=== PATIENT | female | born 1995 | race African-American/Black ===

== ENCOUNTER → 2017-03-19 | Day surgery (SDC) | payer OTHER ==
[~2017-03-19] VITALS: Ht 157.5 cm; Wt 77.6 kg
--- NOTE | 2017-03-24 13:49 | Operative Report ---
Operative/Inv Procedure Report Surgery Date: 03/19/17 Name of Procedure: Excisional biopsy of the vulva Pre-Operative Diagnosis: Vulva lesion Post-Operative Diagnosis: Same Estimated Blood Loss: scant Surgeon/Photocomposition Keyboard Operator: ARVIN LOU MD Anesthesia: moderate sedation, block Operative/Procedure Note Note: Procedure note patient was taken the operating room placed on position after adequate anesthesia the vulva was prepped and draped so fashion bladder was catheterized this point with half percent Marcaine underneath the lesion block for the surgery was performed patient tolerated that well using a needle tip Bovie specimen was removed and sent to pathology the edges were free of disease the edges were hemostatic and reapproximated using 2 interrupted stitches of 30 at the end the case the patient was returned spine position awakened from anesthesia and transferred recovery room awake, Findings: Mid vulva well-circumscribed 1 a half centimeter fibrotic lesion no lymphadenopathy
== END ==
LOC: STS 03:14
DX: N90.89 Other specified noninflammatory disorders of vulva and perineum (principal); F17.200 Nicotine dependence, unspecified, uncomplicated
CPT/HCPCS: 36415; 88305; 88313; J2250